=== PATIENT | male | born 1965 | race Caucasian/White ===

== ENCOUNTER 2020-11-04 17:59 | Emergency (ER) | payer OTHER ==
[~2020-11-04] VITALS: Ht 172.7 cm; Wt 85.7 kg
[2020-11-04] MEDS ORDERED: KETO10TA2 PO (20:00)
[2020-11-04] MEDS ORDERED: MEDROLPACK PO (20:00)
[2020-11-04] MEDS ORDERED: CEFPROZIL500 MG PO (20:00)
== END 2020-11-04 20:21 | disposition home or self-care (01) ==
LOC: ER 17:59
DX: N45.1 Epididymitis (principal); N50.812 Left testicular pain

== ENCOUNTER 2020-11-09 00:02 | Inpatient (IN) | payer OTHER ==
[~2020-11-09] VITALS: Ht 157.5 cm; Wt 85.3 kg
[~2020-11-09 00:02] MED LIST: CEFPROZIL500 MG PO; KETO10TA2 PO; MEDROLPACK PO
--- NOTE | 2020-11-09 00:15 | NUR ---
PACIENTE MASCULINO ALERTA ORIENTADO EN COMPANIA DE FAMILIAR Y DEVIDAMENTE IDENTIFICADO. REFIERE TENER JENNIFER DOLOR EN TESTICULO LT Y EL MISMO SE ENCUENTRA INFLAMADO. LOS SINTOMAS ESTAN PRESENTE DESDE HACE UN MOMENTO. EN EL ALEKSANDR DE HOY TIENE BRANDIE CON DR. HAN KALIA DEVIDO AL JENNIFER DOLOR VISITO LA FELISHA DE EMERGENCIA.
--- NOTE | 2020-11-09 02:03 | NUR ---
SE REALIZAN ORDENES MEDICAS EN CARTER TOTALIDAD. SE ORIENTA A PACIENTE SOBRE MEDICAMENTOS ORDENADOS Y MUESTRAS. PACIENTE REFIERE ENTENDER. SE MANTIENE PACIENTE EN OBSERVACION. SE NOTIFICA A BRENDEN SOBRE SONOGRAMA PENDIENTE.
--- NOTE | 2020-11-09 07:27 | NUR ---
SE RECIBE PAICENTE MASCULINO DE 54 [address]AD PTE.ALERTA,ESTABLE Y ORIENATDO.SE EDUCA SOBRE EL SEGUIMIENTO QUE RECIBIRA EN EL [facility] REFIERE ENTENDER.SE MANTIENE BAJO OBSERVACION POR CAMBIOS SIGNIFICATIVOS.
[2020-11-10] MEDS ORDERED: CEFPROZIL500 MG (15:32)
[2020-11-10] MEDS ORDERED: KETOROLAC TROME10 MG (15:33)
[2020-11-10] MEDS ORDERED: METHYLPREDNISOLO4 M1 (15:33)
[2020-11-23] MEDS ORDERED: TAMS0.4C PO (16:29)
[2020-11-23] MEDS ORDERED: INTESTINEX680 M1 PO (16:29)
[2020-11-23] MEDS ORDERED: ZYVOX PO (16:29)
[2020-11-23] MEDS ORDERED: LEVOFLOXACIN750 MG PO (16:29)
== END 2020-11-23 17:17 | disposition home or self-care (01) | DRG 728 ==
LOC: ER 00:02 → MEDJ 12:21
PROVIDERS: ADMIT Internal Medicine; ATTEND Internal Medicine
PROC: BV44ZZZ Ultrasonography of Scrotum (ICD-10-PCS; principal; 2020-11-09)
PROC: BT4JZZZ Ultrasonography of Kidneys and Bladder (ICD-10-PCS; 2020-11-09)
PROC: B54DZZZ Ultrasonography of Bilateral Lower Extremity Veins (ICD-10-PCS; 2020-11-18)
PROC: BW2410Z Computerized Tomography (CT Scan) of Chest and Abdomen using Low Osmolar Contrast, Unenhanced and Enhanced (ICD-10-PCS; 2020-11-18)
DX: N45.1 Epididymitis (principal); N39.0 Urinary tract infection, site not specified; N43.3 Hydrocele, unspecified; E16.2 Hypoglycemia, unspecified; E86.0 Dehydration; Z20.822 Contact with and (suspected) exposure to COVID-19
CPT/HCPCS: 71275

== ENCOUNTER 2024-12-19 18:05 | Emergency (ER) | payer OTHER ==
[~2024-12-19] VITALS: Ht 172.7 cm; Wt 83.9 kg
[~2024-12-19 18:05] MED LIST changes: +CEFPROZIL500 MG; +INTESTINEX680 M1 PO; +KETOROLAC TROME10 MG; +LEVOFLOXACIN750 MG PO; +METHYLPREDNISOLO4 M1; +TAMS0.4C PO; +ZYVOX PO
[2024-12-19 18:44] VITALS: BP 140/80; O2SAT 95
[2024-12-19] MEDS ORDERED: KETOROLAC TROMETHAMINE 30 MG VIAL ONE (22:12)
[2024-12-19] MEDS ORDERED: KETOROLAC TROMETHAMINE 30 MG VIAL IV ONE (22:15)
[2024-12-19 23:18] LABS: HEMATOCRIT 44.4 % (39.0-48.0); HEMOGLOBIN 14.8 g/dL (13-16.00); MEAN CELL VOLUME 89.7 fL (80.0-100.00); MEAN CORPUSCULAR HGB CONC 33.4 g/dl (32.0-36.0); PLATELET COUNT 311 K/uL (150-450); RED BLOOD COUNT 4.95 M/uL (4.00-6.00)
[2024-12-19 23:26] LABS: URINE APPEARANCE Clear; URINE BILIRRUBIN Negative (NEGATIVE); URINE BLOOD Moderate; URINE COLOR Dark Yellow; URINE GLUCOSE Negative (NEGATIVE); URINE LEUKOCYTE Negative; URINE NITRATE Negative; URINE PROTEIN 30 (NEGATIVE)
[2024-12-19 23:30] LABS: URINE BACTERIA 7.3 uL (0.0-1933); URINE EPITHELIAL CELLS 7.1 uL (0.0-38.8); URINE RBC 68.4 uL (0.0-20.8); URINE WBC 6.3 uL (0.0-23.2)
[2024-12-19 23:31] LABS: URINE CAST 0.44 uL (0.0-1.40); URINE KETONE 40 (NEGATIVE)
[2024-12-19 23:53] LABS: ALBUMIN 4.1 gm/dL (3.4-5.0); BILIRUBIN TOTAL 1.38 mg/dL (0.3-1.2); CALCIUM 9.5 mg/dL (8.5-10.1); CREATININE SERUM 1.23 mg/dL (0.70-1.30); GFR 60.65; GLOBULINA 3.7 G/DL (2.4-3.5); POTASSIUM 4.73 mEq/L (3.5-5.1); TOTAL PROTEIN 7.8 gm/dL (6.4-8.2)
== END 2024-12-20 03:47 | disposition home or self-care (01) ==
LOC: ER 18:05
PROVIDERS: Preventive Medicine Public Health & General Preventive Medicine
DX: K59.00 Constipation, unspecified (principal); E16.2 Hypoglycemia, unspecified; R10.9 Unspecified abdominal pain; Z91.013 Allergy to seafood
CPT/HCPCS: 36415; 74022; 74177; Q9965